=== PATIENT | female | born 1995 | race Caucasian/White ===

== ENCOUNTER 2017-05-02 20:05 | Emergency (ER) | payer OTHER ==
[~2017-05-02] VITALS: Ht 177.8 cm; Wt 188.6 kg
[~2017-05-02 20:05] MED LIST: IBUP-1827 PO
[2017-05-02 20:20] VITALS: BP 148/89; PULSE 93; RESP 24; O2SAT 99
[2017-05-02 21:30] LABS: BASOPHILS % (AUTO) 0.5 % (0-3); EOSINOPHILS % (AUTO) 4.1 % (0-5); MONOCYTES % (AUTO) 7.4 % (4-12); Mean Corpuscular Hemoglobin 26.9 pg (27.0-35.0); Mean Corpuscular Volume 85.7 fL (81-100); NEUTROPHILS % (AUTO) 56.6 % (40-74); Platelet Count 284 bil/L (150-400)
--- NOTE | 2017-05-02 21:38 | ED.REPORT ---
HPI-General Illness Date of Service May 02, 2017 ED Provider: Colin Cummins MD The pt is a 21 y/o female w/ a hx of a type 2 diabetes presenting to the ED complaining of lower extremity edema onset a week ago. She also reports her calves being itchy, as well as dullness and pain in her muscles. Her boyfriend reports he thinks the symptoms began after a mosquito bite she received, though she's not sure about this. The symptoms have been progressively getting worse and are worse on her left. No notable inciting factors. Denies fever, chills, nausea, vomiting, chest pain, shortness of breath. No other complaints at this time. Nursing Notes Stated Complaint: POSSIBLE CELLULITIS IN BOTH LEGS & FEET Chief Complaint: General Complaint Nursing Notes Reviewed: Yes Allergies: Coded Allergies: latex (Verified Allergy, Unknown, 05/02/17) Scheduled Cephalexin (Cephalexin) 500 Mg Capsule 500 MG PO QID Scheduled PRN Ibuprofen (Ibuprofen) 600 Mg Tablet 600 MG PO QID PRN PRN For Pain General Time Seen by MD: 21:38 Chief Complaint Other (Lower extremity edema ) Hx Obtained From: Patient Arrived By: Walk-in Sudden in Onset?: Yes Onset Occurred: 1 week ago Symptom Duration: Since onset Location: : Leg left: Leg right Quality: Dull Associated with: Reports: Itching Recent Healthcare: No recent hospitalization, Recent doctor visit Similar Sx Previous: No Past Medical History Past Medical History Type 2 diabetes Past Surgical History None reported Smoking History Never Smoker Social History Alcohol Use: Denies alcohol use Drug Use: Denies drug use Ambulatory Status Independent Review of Systems Full Review of Systems Constitutional: Denies: Chills, Fever Respiratory: Denies: Shortness of breath Cardiovascular: Reports: Edema (Lower extremities ), Denies: Chest pain GI: Denies: Nausea, Vomiting Musculoskeletal: Reports: Extremity pain (and dullness ) Skin: Reports Itching (Lower extremities ) Complete sys rev & neg: except as marked. Physical Exam Constitutional: Obese young female sitting up in bed. Not diaphoretic. Head: Normocephalic and atraumatic. Mouth/Throat: Oropharynx is clear and moist. No oropharyngeal exudate. Eyes: EOM are normal. Pupils are equal, round, and reactive to light. Neck: Supple, no tracheal deviation. Cardiovascular: Normal rate, regular rhythm. Equal and intact distal pulses throughout. Pulmonary/Chest: Effort normal and breath sounds normal. No respiratory distress. Abdominal: Soft. No distension. There is no tenderness, rebound, or guarding. Bowel sounds present. Musculoskeletal: Range of motion grossly intact, moving all extremities. No edema or tenderness appreciated. Compartments are soft. Neurological: AOx3. Grossly nonfocal exam. Strength and sensation intact and equal to bilateral upper and lower extremities. Skin: Warm and dry. LLE erythrema consistent w/ cellulitis from ankles up to knee Psychiatric: Appropriate mood and affect. Behavior appears normal. Vital Signs Vital Signs Date Time Temp Pulse Resp B/P Pulse Ox O2 Delivery O2 Flow Rate FiO2 05/02/17 23:28 90 20 173/104 100 05/02/17 20:20 36.6 93 24 148/89 99 Room Air Interpretation & Diagnostics Lab Results Interpretation Result Diagram: 05/02/17210905/02/172109 Test 05/02/17 21:10 White Blood Count 9.8th/mm3 (3.8-10.1) Red Blood Count 5.10mil/mm3 (3.90-5.20) Hemoglobin 13.7g/dL (12.0-15.6) Hematocrit 43.7% (35.0-46.0) Mean Corpuscular Volume 85.7fL (81-100) Mean Corpuscular Hemoglobin 26.9pg (27.0-35.0) Mean Corpuscular Hemoglobin Concent 31.4% (32.0-37.0) Red Cell Distribution Width 15.0% (12.3-15.4) Platelet Count 284bil/L (150-400) Neutrophils (%) (Auto) 56.6% (40-74) Lymphocytes (%) (Auto) 30.7% (14-46) Monocytes (%) (Auto) 7.4% (4-12) Eosinophils (%) (Auto) 4.1% (0-5) Basophils (%) (Auto) 0.5% (0-3) Sodium Level 138mEq/L (134-144) Potassium Level 3.9mEq/L (3.5-5.2) Chloride Level 98mEq/L (97-108) Carbon Dioxide Level 26mmol/L (18-29) Blood Urea Nitrogen 9mg/dL (6-20) Creatinine 0.47mg/dL (0.57-1.00) Estimat Glomerular Filtration Rate 237mL/min (>59) Glucose Level 221mg/dL (60-99) Calcium Level 9.5mg/dL (8.5-10.1) Total Bilirubin 0.4mg/dL (0.0-1.2) Aspartate Amino Transf (AST/SGOT) 25U/L (0-50) Alanine Aminotransferase (ALT/SGPT) 40U/L (0-32) Alkaline Phosphatase 65U/L (25-150) Total Protein 7.7g/dL (6.4-8.4) Albumin 3.9g/dL (3.4-5.0) Re-Eval/Medical Decision Med Decision/Clinical Course 21-year-old female with a history of type II diabetes presenting to the ED for evaluation of lower extremity erythema consistent with cellulitis. History and lack of risk factors make DVT much less likely. Clinically most consistent with cellulitis at this time; no systemic involvement right now. Plan antibiotic treatment, reassessment in 1-2 days to ensure improvement. I discussed that if she develops any new or worsening symptoms, or if she is not getting better, she needs to be reassessed and an ultrasound is to be done. She is agreeable to this plan, no further questions. Careful return precautions were discussed. Laboratory studies were reassuring here in the ED. Time of Eval: 23:00 Re-Evaluation/Progress Note: Pt rechecked. Informed pt of plan for treatment. Pt understands and agrees with plan for treatment. F/U instructions and RTER warnings given. All questions addressed. Counseled Regarding: Diagnosis, Lab results, Need for follow-up, When/why to return to ED Discharge & Departure Primary Impression: Cellulitis Site of cellulitis: extremity Site of cellulitis of extremity: lower extremity Laterality: unspecified laterality Qualified Code: L03.119 - Cellulitis of unspecified part of limb Additional Impression: Leg edema Laterality: unspecified laterality Qualified Code: R60.0 - Localized edema Disposition: Home Discharge Condition All VS Reviewed: Yes Condition: Stable Additional Instructions: Thank you for allowing us to be a part of your care today in the emergency department. Your exam seems consistent with cellulitis of your leg. However, as discussed, if you do not see improvement in the next several days, this may be something more serious. I would like you to follow up with your regular doctor within 1 to 2 days. Return to the emergency department immediately if you develop fever, shortness of breath, worsening pain, redness, or swelling, or if there is anything else of concern you. Referrals: Anthony Kenyon DO (PCP) [place] Attestation Portions of this note were transcribed by Wander Hilliard. I, Dr. Shaw personally performed the history, physical exam and medical decision- making; I reviewed and confirmed the accuracy of the information in the transcribed note. Signed by: Maria Guadalupe Kuhn, 05/02/17 and 1862. copies to: Anthony Kenyon William B MD May 02, 2017 21:38 Wander Hilliard May 02, 2017 23:56
[2017-05-02] MEDS ORDERED: CEPH500C PO (23:07)
[2017-05-02 23:28] VITALS: BP 173/104; PULSE 90; RESP 20; O2SAT 100
== END 2017-05-02 23:28 | disposition home or self-care (01) ==
LOC: SED 20:05
DX: L03.116 Cellulitis of left lower limb (principal); R60.0 Localized edema; E11.9 Type 2 diabetes mellitus without complications; Z91.040 Latex allergy status